=== PATIENT | male | born 2000 | race Caucasian/White ===

== ENCOUNTER 2021-06-10 10:54 | Emergency (ER) | payer OTHER ==
[~2021-06-10] VITALS: Ht 177.8 cm; Wt 85.7 kg
[2021-06-10] MEDS ORDERED: ONDANSETRON 4MG/2ML VIAL IV ONE (13:45)
[2021-06-10] MEDS ORDERED: KETOROLAC 30 MG/ML 1ML VIAL IV ONE (13:45)
[2021-06-10 14:48] LABS: HEMATOCRIT 41.5 % (42.0-52.0); HEMOGLOBIN 14.2 g/dl (13.5-17.5); MEAN CORPUSCULAR HEMOGLOBIN 29.7 pg (27.0-33.0); MEAN CORPUSCULAR HGB CONC 34.2 g/dl (32.0-36.5); MEAN CORPUSCULAR VOLUME 86.8 fl (80.0-96.0); PLATELET COUNT, AUTOMATED 245 10^3/uL (150-450); RED BLOOD COUNT 4.78 10^6/uL (4.30-6.10); WHITE BLOOD COUNT 3.7 10^3/uL (4.0-10.0)
[2021-06-10 15:09] LABS: ATYPICAL LYMPH 9 % (0-5); EOSINOPHILS 1 % (0-3); LYMPHOCYTES 30 % (16-44); MONOCYTES 5 % (0-5); NEUTROPHILS 52 % (28-66); PLATELET ESTIMATE NORMAL (NORMAL)
[2021-06-10 15:18] LABS: ALBUMIN 4.3 GM/DL (3.2-5.2); ALT/SGPT 28 U/L (12-78); BILIRUBIN,DIRECT 0.2 MG/DL (0.0-0.2); BILIRUBIN,TOTAL 0.8 MG/DL (0.2-1.0); BLOOD UREA NITROGEN 12 MG/DL (7-18); CARBON DIOXIDE LEVEL 28 MEQ/L (21-32); CHLORIDE LEVEL 107 MEQ/L (98-107); CREATININE FOR GFR 0.93 MG/DL (0.70-1.30); GLUCOSE, FASTING 85 MG/DL (70-100); LIPASE 73 U/L (73-393); POTASSIUM SERUM 4.4 MEQ/L (3.5-5.1); SODIUM LEVEL 141 MEQ/L (136-145); TOTAL PROTEIN 7.7 GM/DL (6.4-8.2)
[2021-06-10] MEDS ORDERED: ISOVUE-370 76% 100ML VIAL As Ordered ONE (15:23)
[2021-06-10 15:49] LABS: MONO SCRN NEGATIVE (NEGATIVE)
[2021-06-10 16:32] LABS: RSV AMPLIFICATION NEGATIVE (NEGATIVE)
[2021-06-10 19:05] VITALS: BP 131/71
[2021-06-10 20:21] LABS: GC DNA AMPLIFICATION NEGATIVE (NEGATIVE)
== END 2021-06-10 20:03 | disposition home or self-care (01) ==
LOC: M ED 10:54
DX: I88.0 Nonspecific mesenteric lymphadenitis (principal); R10.11 Right upper quadrant pain; R19.7 Diarrhea, unspecified; R11.2 Nausea with vomiting, unspecified
CPT/HCPCS: 74177; 80048; 80076; 81001; 83690; 85025; 86308; 87631; 87810; 87850; 96374; 96375; 99284; J1885; J2405; Q9967